=== PATIENT | female | born 1995 | race Caucasian/White ===

== ENCOUNTER 2019-09-04 22:54 | Emergency (ER) | payer MEDICAID, SELFPAY ==
[2019-09-04 23:01] VITALS: BP 116/75; PULSE 90; RESP 18; TEMP 36.4; O2SAT 99
--- NOTE | 2019-09-05 01:01 | ED_ITS ---
HPI - Psych General: Chief Complaint: Psychiatric Symptoms Stated Complaint: anxiety Time Seen by Provider: 09/05/19 00:43 History of Present Illness: HPI Narrative: 23-year-old female comes in today for complaints of increased stress and anxiety. Patient reports that her uncle and her dad has had 2 recent life-threatening events, heart attack and stroke. Patient states that she then argued with her boyfriend joe which just made her really upset and anxious. Patient does take routine medication, paroxetine, for depression already. Patient thinks that she might need something to help with her anxiety. Patient appears well. Patient is cooperative. Patient denies suicidal ideation or homicidal ideation. Review of Systems General: Reports: 10 or more systems reviewed and unremarkable except in HPI and below Psych: Reports: anxiety Physical Exam Const: COMMON NORMALS: no acute distress and patient oriented x3 GENERAL APPEARANCE: cooperative HENMT: COMMON NORMALS: normocephalic and Normal external nose present HEAD & SCALP: normal to inspection and normocephalic NOSE: Normal external nose present MOUTH: Normal oral and palatal mucosa present THROAT: posterior oropharynx normal Eye: GENERAL EYE: appearance normal, both eyes and all related structures Neck/C-Spine: COMMON NORMALS: full ROM Lymph: LYMPHATIC: no lymphadenopathy noted Chest: COMMONS NORMALS: normal inspection of the chest Resp: COMMON NORMALS: normal respiratory effort EFFORT & INSPECTION: Yes able to speak in complete sentences Cardio: COMMON NORMALS: regular rate and regular rhythm RATE: regular rate RHYTHM: regular rhythm GI: COMMON NORMALS: non-tender Back/Pelvis: COMMON NORMALS: thoracic and lumbar spine normal to inspection Extremity: COMMON NORMALS: normal to inspection Neuro: COMMON NORMALS: patient oriented x3 and moves all extremities Psych: COMMON NORMALS: mental status grossly normal and cooperative Skin: COMMON NORMALS: no rashes or lesions noted GENERAL SKIN EXAM: no rashes or lesions noted MDM - Psych MDM Narrative: Medical decision making narrative: Patient comes in today for complaints of anxiety and increased stress. Patient reports issues with anxiety and depression. Patient has had some increasing life stressors over the past 2 months that has increased her anxiety level. Patient is cooperative and speaks appropriately. Patient denies any homicidal or suicidal thoughts. Differential diagnosis includes adjustment disorder, depression, generalized anxiety. Reviewed exam with patient with recommendations for further treatment and evaluation with behavioral health specialist. Patient will be started on buspirone 10 mg twice a day with recommendations for reevaluation with behavioral health career services representative within 2 weeks. Patient reports understanding of care plan and need for follow-up. Discharge Plan Discharge Patient Disposition: Home, Self-Care Clinical Impression: Acute anxiety, Adjustment disorder with anxiety Condition: Stable Prescriptions: New buspirone 10 mg tablet 10 mg PO BID Qty: 60 RF: 0 Discharge Orders: Discharge Order (Routine); Ordered 09/05/19 Ordered By: Nando Alonso Discharge Diet: Usual diet Discharge Activity: Increase activity as tolerated Patient Instructions: Anxiety (ED) Activity Restrictions/Additional Instructions: Take medication as directed. Continue with routine antidepressant. Remember to take time for yourself either through a long walk or relaxing activity. Follow- up with behavioral health specialist as scheduled. Return to the ER for new concerns or suicidal thoughts. Coding Level of Care Code ED Sustainability Officer for Landon Adler
[2019-09-05 01:19] VITALS: BP 122/78; PULSE 101; RESP 16; O2SAT 98
[2019-09-05 02:35] VITALS: BP 113/78; PULSE 96; RESP 16; O2SAT 98
== END 2019-09-05 02:36 | disposition home or self-care (01) ==
PROVIDERS: Emergency Provider Nurse Practitioner Family
DX: F43.22 Adjustment disorder with anxiety (principal)
CPT/HCPCS: 12345; 99281; 99282